=== PATIENT | female | born 1990 | race American Indian/Alaskan Native ===

== ENCOUNTER 2020-05-07 15:44 | Emergency (ER) | payer SELFPAY ==
[2020-05-07 16:04] VITALS: BP 115/82
--- NOTE | 2020-05-07 17:04 | Emergency Department Report ---
ED Back Pain/Injury HPI - General Chief Complaint: Back Pain/Injury Stated Complaint: LOWER BACK PAIN Time Seen by Provider: 05/07/20 17:00 Source: patient Limitations: No Limitations - History of Present Illness Initial Comments: Patient is a 29-year-old female presents emergency room locates of low back pain that began 6 days ago. She states that she was at work using a piece of equipment but states that she is too short for the equipment and she tried to reach the pedal for her feet and felt like her back "locked up". She denies any fall or significant trauma. She is ambulatory without difficulty. She denies any fever, nausea, vomiting, diarrhea, urinary symptoms. She denies any numbness, weakness, bowel or bladder incontinence. She denies any history of any back issues. No past medical history. No allergies to medications. Last menstrual cycle the beginning of April. - Related Data Previous Rx's Medication Instructions Recorded Last Taken Type Menthol/Camphor [Serafina [place] 1 applicatio TP BID #18 oint...g. 05/07/20 Unknown Rx Ointment] Naproxen [EC-Naprosyn] 500 mg PO BID PRN #14 tablet. 05/07/20 Unknown Rx methOCARBAMOL [Robaxin TAB] 500 mg PO BID PRN #14 tab 05/07/20 Unknown Rx ED Review of Systems ROS: Stated complaint: LOWER BACK PAIN Other details as noted in HPI Comment: All other systems reviewed and negative ED Past Medical Hx - Past Medical History Previous Medical History?: No - Surgical History Past Surgical History?: No - Social History Smoking Status: Never Smoker Substance Use Type: None - Medications Home Medications: Home Medications Medication Instructions Recorded Confirmed Last Taken Type Menthol/Camphor [Serafina [place] 1 applicatio TP BID #18 oint...g. 05/07/20 Unknown Rx Ointment] Naproxen [EC-Naprosyn] 500 mg PO BID PRN #14 tablet. 05/07/20 Unknown Rx methOCARBAMOL [Robaxin TAB] 500 mg PO BID PRN #14 tab 05/07/20 Unknown Rx ED Physical Exam - General Limitations: No Limitations General appearance: alert, in no apparent distress - Head Head exam: Present: atraumatic, normocephalic - Eye Eye exam: Present: normal appearance - ENT ENT exam: Present: mucous membranes moist - Neck Neck exam: Present: normal inspection, full ROM. Absent: tenderness - Respiratory Respiratory exam: Present: normal lung sounds bilaterally. Absent: respiratory distress, wheezes, rales, rhonchi, stridor, chest wall tenderness, accessory muscle use, decreased breath sounds, prolonged expiratory - Cardiovascular Cardiovascular Exam: Present: regular rate, normal rhythm, normal heart sounds. Absent: systolic murmur, diastolic murmur, rubs, gallop - Back Exam Back exam: Present: normal inspection, full ROM, paraspinal tenderness (bilateral lumbar paraspinal muscular ttp, no midline C-spine, T-spine or L- spine ttp, no step offs, no deformities ). Absent: vertebral tenderness - Neurological Exam Neurological exam: Present: alert, oriented X3, CN II-XII intact, normal gait. Absent: motor sensory deficit - Psychiatric Psychiatric exam: Present: normal affect, normal mood - Skin Skin exam: Present: warm, dry, intact ED Course Vital Signs 05/07/20 16:03 Temperature 99.2 F Pulse Rate 79 Respiratory 18 Rate Blood Pressure 115/82 O2 Sat by Pulse 99 Oximetry ED Medical Decision Making - Medical Decision Making Patient is a 29-year-old female presents emergency room locates of low back pain that began 6 days ago. She states that she was at work using a piece of equipment but states that she is too short for the equipment and she tried to reach the pedal for her feet and felt like her back "locked up". She denies any fall or significant trauma. She is ambulatory without difficulty. She denies any fever, nausea, vomiting, diarrhea, urinary symptoms. She denies any numbness, weakness, bowel or bladder incontinence. She denies any history of any back issues. No past medical history. No allergies to medications. Last menstrual cycle the beginning of April. Vitals are normal. On exam:bilateral lumbar paraspinal muscular ttp, no midline C-spine, T-spine or L- spine ttp, no step offs, no deformities, no focal neuro deficits. Examination appears most consistent with lumbar strain. Patient has had no trauma, she has no midline tenderness, no step-offs, no deformities, no focal neuro deficits. She has no red flag warning signs of back pain, no unexplained weight loss, no neuro deficits, age is not greater than 50, no fever, no IV drug use, no steroid use, no history of cancer. Patient given prescription for naproxen, Robaxin, Serafina balm ointment. Advised patient Please use medication as prescribed. Do not drive or operate machinery while taking muscle relaxer Robaxin. May use ice pack, heating pad, rest, Epsom salt bath. Follow-up with a primary care doctor. Follow-up with orthopedic/spine doctor. Return to emergency room for any new or worsening symptoms. - Differential Diagnosis strain, sprain, fx, dislocation, DDD, bulging disc Critical care attestation.: If time is entered above; I have spent that time in minutes in the direct care of this critically ill patient, excluding procedure time. ED Disposition Clinical Impression: Low back strain Qualifiers: Encounter type: initial encounter Qualified Code(s): S39.012A - Strain of muscle, fascia and tendon of lower back, initial encounter Disposition: TO HOME OR SELFCARE Is pt being admited?: No Does the pt Need Aspirin: No Condition: Stable Instructions: Lumbar Strain Additional Instructions: Please use medication as prescribed. Do not drive or operate machinery while taking muscle relaxer Robaxin. May use ice pack, heating pad, rest, Epsom salt bath. Follow-up with a primary care doctor. Follow-up with orthopedic/spine doctor. Return to emergency room for any new or worsening symptoms. Prescriptions: Naproxen [EC-Naprosyn] 500 mg PO BID PRN #14 tablet.dr PRN Reason: pain methOCARBAMOL [Robaxin TAB] 500 mg PO BID PRN #14 tab PRN Reason: pain Menthol/Camphor [Serafina [place] Ointment] 1 applicatio TP BID #18 oint...g. Referrals: DANNIE ESPARZA MD [Staff Physician] - 2-3 Days [facility] [Provider Group] - 2-[address] [facility], [LAB/CONTRACT] - 2-[address] [facility] [Provider Group] - 2-3 Days LUCIA SANTOS II, MD [Staff Physician] - 2-3 Days Time of Disposition: 17:02 Print Language: WOLOF
== END 2020-05-07 17:15 | disposition home or self-care (01) ==
LOC: ED 15:44
DX: S39.012A Strain of muscle, fascia and tendon of lower back, initial encounter (principal); Z79.899 Other long term (current) drug therapy; X58.XXXA Exposure to other specified factors, initial encounter; Y93.89 Activity, other specified; Y92.89 Other specified places as the place of occurrence of the external cause; Y99.0 Civilian activity done for income or pay
CPT/HCPCS: 99282